=== PATIENT | male | born 1995 | race Caucasian/White ===

== ENCOUNTER 2022-12-11 12:07 | Emergency (ER) | payer MEDICAID ==
[~2022-12-11] VITALS: Ht 175.3 cm; Wt 108.6 kg
[2022-12-11] MEDS ORDERED: normal saline 1000ML IV soln IVB ONE ×2 (14:05→14:50)
--- NOTE | 2022-12-11 14:08 | NUR ---
PT PERFORMED A BG CK WITH HIS OWN GLUCOMETER WHILE RN WAS NOT IN HIS RM AND STATES THAT THE LEVEL IS NOW 264. PT STATES THAT HE TOOK JANUMET BEFORE HE ARRIVED TO THE HOSPITAL. LAB IS AT BEDSIDE COLLECTING BLOOD. RN WILL CONTINUE TO MONITOR.
[2022-12-11 14:24] LABS: BASOPHILS % (AUTO) 0.4 % (0-1); EOSINOPHILS # (AUTO) 0.1 X10'3 (0-0.9); EOSINOPHILS % (AUTO) 1.1 % (0-6); HEMATOCRIT 48.3 % (42.0-52.0); HEMOGLOBIN 16.2 g/dl (14.0-17.9); LYMPHOCYTES # (AUTO) 1.9 X10'3 (1.1-4.8); LYMPHOCYTES % (AUTO) 24.9 % (21-51); MEAN CORPUSCULAR HEMOGLOBIN 29.5 PG (27.0-31.0); MEAN CORPUSCULAR HGB CONC 33.5 g/dL (33.0-36.5); MEAN CORPUSCULAR VOLUME 88.1 FL (78-98); MEAN PLATELET VOLUME 7.4 FL (7.4-10.4); MONOCYTES # (AUTO) 0.7 X10'3 (0-0.9); MONOCYTES % (AUTO) 9.6 % (2-12); NEUTROPHILS # (AUTO) 4.9 X10'3 (1.8-7.7); PLATELET COUNT 230 X10'3 (140-440); RED BLOOD COUNT 5.48 X10'6 (4.70-6.10); WHITE BLOOD COUNT 7.6 X10'3 (4.5-11.0)
[2022-12-11 14:32] LABS: ALANINE AMINOTRANSFERASE 32 U/L (12-78); ALBUMIN 3.9 G/DL (3.4-5.0); ALBUMIN/GLOBULIN RATIO 1.1 (1.1-1.5); ALKALINE PHOSPHATASE 97 IU/L (46-116); ANION GAP 6 (8-16); ASPARTATE AMINO TRANSFERASE 20 U/L (10-37); BILIRUBIN,TOTAL 0.8 MG/DL (0.1-1.0); BLOOD UREA NITROGEN 13 MG/DL (7-18); BUN/CREATININE RATIO 12.1 (10.0-20.0); CALCIUM 9.3 MG/DL (8.5-10.1); CHLORIDE 98 MMOL/L (99-107); CREATININE 1.07 MG/DL (0.60-1.10); GLUCOSE 313 MG/DL (70-104); LIPASE 688 U/L (73-393); POTASSIUM 4.3 MMOL/L (3.5-5.1); SODIUM 137 MMOL/L (135-145); TOTAL CARBON DIOXIDE 32.6 MMOL/L (24-32); TOTAL PROTEIN 7.4 G/DL (6.4-8.2); eGFR 82 ML/MIN
[2022-12-11] MEDS ORDERED: SITA1TAB2 PO (15:33)
[2022-12-11 15:42] VITALS: BP 126/83
--- NOTE | 2022-12-11 15:47 | NUR ---
BOLUSES ARE COMPLETE. RN JENIFER BG AND IT WAS 244. RN WILL NOTIFY JOE DIAZ
== END 2022-12-11 16:27 | disposition home or self-care (01) ==
LOC: ER 12:08
DX: K86.1 Other chronic pancreatitis (principal)
CPT/HCPCS: 36415; 80053; 82948; 83690; 85025; 96360; 99284; J7030

== ENCOUNTER 2023-01-21 01:23 | Emergency (ER) | payer MEDICAID ==
[~2023-01-21] VITALS: Ht 177.8 cm; Wt 106.8 kg
[~2023-01-21 01:23] MED LIST: SITA1TAB2 PO
[2023-01-21 02:28] LABS: BASOPHILS # (AUTO) 0.1 X10'3 (0-0.2); BASOPHILS % (AUTO) 0.6 % (0-1); EOSINOPHILS # (AUTO) 0.1 X10'3 (0-0.9); EOSINOPHILS % (AUTO) 0.8 % (0-6); HEMATOCRIT 48.4 % (42.0-52.0); HEMOGLOBIN 16.1 g/dl (14.0-17.9); LYMPHOCYTES # (AUTO) 3.6 X10'3 (1.1-4.8); LYMPHOCYTES % (AUTO) 32.1 % (21-51); MEAN CORPUSCULAR HEMOGLOBIN 29.4 PG (27.0-31.0); MEAN CORPUSCULAR HGB CONC 33.3 g/dL (33.0-36.5); MEAN CORPUSCULAR VOLUME 88.3 FL (78-98); MEAN PLATELET VOLUME 7.4 FL (7.4-10.4); MONOCYTES % (AUTO) 8.4 % (2-12); NEUTROPHILS # (AUTO) 6.6 X10'3 (1.8-7.7); NEUTROPHILS % (AUTO) 58.1 % (42-75); PLATELET COUNT 289 X10'3 (140-440); RED BLOOD COUNT 5.48 X10'6 (4.70-6.10); WHITE BLOOD COUNT 11.3 X10'3 (4.5-11.0)
[2023-01-21 02:34] LABS: ALANINE AMINOTRANSFERASE 30 U/L (12-78); ALBUMIN 4.1 G/DL (3.4-5.0); ALBUMIN/GLOBULIN RATIO 1.1 (1.1-1.5); ALKALINE PHOSPHATASE 83 IU/L (46-116); ANION GAP 8 (8-16); ASPARTATE AMINO TRANSFERASE 15 U/L (10-37); BILIRUBIN,TOTAL 0.5 MG/DL (0.1-1.0); BLOOD UREA NITROGEN 14 MG/DL (7-18); BUN/CREATININE RATIO 11.1 (10.0-20.0); CALCIUM 9.1 MG/DL (8.5-10.1); CHLORIDE 102 MMOL/L (99-107); CREATININE 1.26 MG/DL (0.60-1.10); GLUCOSE 210 MG/DL (70-104); POTASSIUM 3.7 MMOL/L (3.5-5.1); SODIUM 142 MMOL/L (135-145); TOTAL CARBON DIOXIDE 31.8 MMOL/L (24-32); TOTAL PROTEIN 7.7 G/DL (6.4-8.2); eGFR 68 ML/MIN
[2023-01-21] MEDS ORDERED: ketorolac trometh inj. 60 MG/2 ML VIAL IM ONE (03:40)
[2023-01-21] MEDS ORDERED: LIDOcaine Viscous 15ml cup MM ONE (03:40)
[2023-01-21] MEDS ORDERED: mag hydrox/Alum hydrox/simeth 30ml oral suspension PO ONE (03:40)
[2023-01-21 04:57] VITALS: BP 122/79
== END 2023-01-21 04:58 | disposition home or self-care (01) ==
LOC: ER 01:24
DX: R07.89 Other chest pain (principal); E11.9 Type 2 diabetes mellitus without complications; F41.9 Anxiety disorder, unspecified; Z79.899 Other long term (current) drug therapy
CPT/HCPCS: 36415; 71045; 80053; 83880; 84484; 85025; 93005; 96372; 99285; J1885

== ENCOUNTER 2023-12-10 09:16 | Emergency (ER) | payer MEDICAID ==
[~2023-12-10] VITALS: Ht 177.8 cm; Wt 97.0 kg
[2023-12-10 10:49] VITALS: BP 118/78; TEMP 97.7
[2023-12-10 11:17] VITALS: PULSE 84; RESP 16; O2SAT 100
== END 2023-12-10 11:19 | disposition home or self-care (01) ==
LOC: ER 09:17
DX: G56.03 Carpal tunnel syndrome, bilateral upper limbs (principal); Z79.899 Other long term (current) drug therapy
CPT/HCPCS: 99281